=== PATIENT | female | born 1940 | race Caucasian/White ===

== ENCOUNTER 2016-04-26 09:06 | Day surgery (SDC) ==
[2016-04-26 10:07] LABS: HEMATOCRIT 49.8 % (37.0-47.0); HEMOGLOBIN 15.8 g/dL (12.0-16.0); MCH 28.6 PG (27-31); MCHC 31.7 g/dL (33-37); MCV 90.1 FL (81-99); MPV 11.1 FL (7.4-10.4); RBC 5.53 XMIL (4.2-5.4)
[2016-04-26 10:22] LABS: INR 1.05; PROTIME 11.1 Seconds (9.2-11.7); PTT 29.9 Seconds (22.0-36.0)
--- NOTE | 2016-04-26 13:16 | Diag Imaging Result Document ---
PROCEDURE NAME: CHEST-2 VIEWS - 04/26/2016 INSPIRATORY/EXPIRATORY CHEST FOLLOWING CT-GUIDED BIOPSY OF THE RIGHT LOWER LOBE: FINDINGS: There is no evidence of pneumothorax or pleural fluid collection. The appearance of the chest has not changed appreciably since 12/09/2015. IMPRESSION: No evidence of acute disease.
--- NOTE | 2016-04-26 13:28 | Diag Imaging Result Document ---
PROCEDURE NAME: CT GUIDED BIOPSY LUNG - 04/26/2016 CT-GUIDED BIOPSY OF THE RIGHT LOWER LOBE: TECHNIQUE: The nodule in the posterior right lower lobe which was demonstrated on the PET-CT scan of 04/15/[address] of the chest dated 04/09/2016 was biopsied. Prior to the procedure, the benefits and risks of the procedure including the possibility of bleeding, infection, pneumothorax, or reaction to lidocaine were discussed. The patient agreed to the procedure. Following sterile preparation of the skin posteriorly and administration of 1% lidocaine to the skin and deeper soft tissues, a coaxial Unpaktno 20-gauge core biopsy needle was employed to obtain 4 cores from the lesion. There are no immediate complications aside from limited hemoptysis. IMPRESSION: Successful CT-guided percutaneous biopsy of right lower lobe nodule.
[2016-04-26 15:04] VITALS: BP 111/73
--- NOTE | 2016-04-26 19:26 | Diag Imaging Result Document ---
PROCEDURE NAME: CHEST-2 VIEWS - 04/26/2016 TWO-VIEWS OF THE CHEST: FINDINGS: There is no evidence of pneumothorax or pleural fluid collection, and compared to the previous set of images at 11:55 hours, there has been no significant change in the appearance of the chest. IMPRESSION: No evidence of pneumothorax.
== END 2016-04-26 15:25 | disposition home or self-care (01) ==
LOC: ENDO 09:06
PROVIDERS: ATTEND Internal Medicine Pulmonary Disease
DX: J98.4 Other disorders of lung (principal); R22.9 Localized swelling, mass and lump, unspecified; J44.9 Chronic obstructive pulmonary disease, unspecified; E78.5 Hyperlipidemia, unspecified; G47.33 Obstructive sleep apnea (adult) (pediatric); G47.10 Hypersomnia, unspecified; Z87.891 Personal history of nicotine dependence; R06.02 Shortness of breath; R42 Dizziness and giddiness; Z85.3 Personal history of malignant neoplasm of breast; Z79.51 Long term (current) use of inhaled steroids; Z79.82 Long term (current) use of aspirin; Z79.899 Other long term (current) drug therapy
CPT/HCPCS: 32405; 71020; 77012; 85027; 85610; 85730; 88305; 88312

== ENCOUNTER 2018-10-23 20:01 | Inpatient (IN) ==
[2018-10-23] MEDS ORDERED: SOLU-MEDROL IV ONE ×2 (20:35→20:40)
[2018-10-23] MEDS ORDERED: DUONEB (A & A) INH ONE ×2 (20:35→20:36)
[2018-10-23] MEDS ORDERED: LASIX IV ONE ×2 (20:40→23:03)
--- NOTE | 2018-10-23 20:42 | PROVIDER DOCUMENTATION ---
HPI-Respiratory General - General Chief Complaint: Shortness of Breath Stated Complaint: sob Time Seen by Provider: 10/23/18 20:30 Source: patient, EMS Allergies/Adverse Reactions: Patient Allergies Allergy/AdvReac Type Severity Reaction Status Date / Time ampicillin Allergy Unknown Verified 04/23/17 18:39 flaxseed Allergy ITCHING Verified 04/23/17 18:39 meperidine HCl * Allergy migraines Verified 04/23/17 18:39 [From Demerol] oxycodone HCl * Allergy HEADACHE Verified 04/23/17 18:39 [From Percodan] oxycodone terephthalate * Allergy HEADACHE Verified 04/23/17 18:39 [From Percodan] oxytetracycline Allergy Unknown Verified 04/23/17 18:39 [From Terramycin] oxytetracycline HCl * Allergy Unknown Verified 04/23/17 18:39 [From Terramycin] Sulfa (Sulfonamide Allergy ITCHING Verified 04/23/17 18:39 Antibiotics) tetracycline Allergy ITCHING Verified 04/23/17 18:39 Home Medications: Home Medication List Medication Instructions Recorded Confirmed Last Taken Type Levothyroxine [Synthroid] 50 microgm PO DAILY 04/29/14 04/23/17 04/23/17 History Simvastatin 20 mg PO QHS 04/29/14 04/23/17 04/22/17 History Triamterene/Hydrochlorothiazid 1 each PO DAILY 04/29/14 04/23/17 04/23/17 History [Triamterene-Hctz 37.5-25 mg Cp] Aspirin 81 mg PO DAILY #0 chewtab 05/06/14 04/23/17 04/23/17 Rx Diltiazem [Cardizem] 120 mg PO DAILY #30 tablet 05/06/14 04/23/17 04/23/17 Rx Omeprazole 40 mg PO DAILY #60 capsule. 07/31/15 04/23/17 04/23/17 Rx Clonazepam [Klonopin] 0.5 mg PO BID 04/25/16 04/23/17 04/23/17 History Albuterol Sulfate Inhaler 2 puff INH [id number] PRN 04/23/17 04/23/17 04/23/17 History [Ventolin Hfa] Bisacodyl [Dulcolax] 10 mg TN BID supp 05/12/17 Unknown Rx Iron Carbonyl/Ascorbic Acid 1 ea PO BID #60 tab 05/12/17 Unknown Rx [Icar-C] Levofloxacin [Levaquin] 500 mg PO DAILY #4 tab 05/12/17 Unknown Rx Methylprednisolone [Medrol Dosepak] 4 mg PO DIRECTED #1 pkg 05/12/17 Unknown Rx Multivitamins/Minerals [Centrum 1 each PO DAILY tablet 05/12/17 Unknown Rx Silver] Polyethylene Glycol 3350 [Miralax] 34 gm PO BID PRN #1 powder, packet 05/12/17 Unknown Rx Sitagliptin [Januvia] 50 mg PO DAILY #30 tab 05/12/17 Unknown Rx - History of Present Illness-Resp Nature of Presenting Problem: [id number] presents to the ER with c/o SOB. She states that she has had increasing SOB over a period of days. She claims to wear 3L NC at home. However, EMS was called due to the patient's distress. Upon arrival, O2 sat's were 80% on 3L NC. Patient reports a history of COPD, Emphysema, Afib, and HTN. She denies any CHF. Onset/Duration: reports: gradual Episode Frequency: chronic episodes Current Respiratory Medication Therapy: Initiated albuterol/atrovent inhale, Initiated A/A nebulizer Similar Symptoms Previously?: No Recently seen or treated by another doctor?: No Review of Systems - Adult - REVIEW OF SYSTEMS - ADULT Constitutional: reports: see HPI. denies: chills, fever Eyes: reports: no symptoms reported Ears, Nose, Mouth & Throat: reports: no symptoms reported Cardiovascular: reports: see HPI, edema, irregular heart rate Respiratory: reports: see HPI, cough, dyspnea on exertion, shortness of breath, wheezing Gastrointestinal: reports: no symptoms reported. denies: abdominal pain, diarrhea, nausea, vomiting Genitourinary: reports: no symptoms reported Musculoskeletal: reports: no symptoms reported Integumentary: reports: no symptoms reported Neurological: reports: no symptoms reported. denies: dizziness/vertigo, syncope Psychiatric: reports: no symptoms reported Endocrine: reports: no symptoms reported Hematologic/Lymphatic: reports: no symptoms reported Allergic/Immunologic: reports: no symptoms reported All Other Systems: Reviewed and Negative Past History - Adult - PAST MEDICAL HISTORY-ADULT Review of Records: reports: Old Records Reviewed, Nursing Assessment Review, Medications Reviewed, Social history reviewed & non-contributory. Major Childhood Illnesses: reports: denies history Cardiovascular: reports: HTN, hyperlipidemia Respiratory: reports: COPD Gastrointestinal: reports: GERD, ulcer Obstetrical/Gynecological: reports: other (left breast cancer) Genitourinary: reports: denies history Musculoskeletal: reports: denies history Neurological: reports: denies history Psychiatric: reports: anxiety, depression Endocrine/Immune: reports: denies history Other Conditions: reports: denies history - PRIOR SURGERIES/PROCEDURES Surgical/Procedure History: reports: hernia repair, other (mastectomy) - IMMUNIZATION STATUS Childhood Immunizations: See Nurse Assessment Flu Vaccine: See Nurse Assessment - FAMILY HISTORY Family History: reviewed, not pertinent - SOCIAL HISTORY Smoking: denies, quit greater than 1 year Substance Use: denies Living Situation: care facility Physical Exam-General - PHYSICAL EXAM-ADULT Initial Vital Signs Reviewed: Yes - CONSTITUTIONAL General Appearance: alert, moderate distress - EYES Eyes: PERRL/EOMI, pink conjunctivae - HEAD, EARS, NOSE, MOUTH & THROAT HENMT: normocephalic/atraumatic, moist mucous membranes - NECK Neck: non-tender, full range of motion, supple - RESPIRATORY Respiratory: decreased breath sounds, accessory muscle use, wheezing - CARDIOVASCULAR Cardiovascular: normal peripheral pulses, irregularly irregular - GASTROINTESTINAL (ABDOMEN) Abdominal Exam: normal bowel sounds, non tender, distended - MUSCULOSKELETAL Back Exam: normal inspection Extremity: normal range of motion, non-tender, normal gait, pedal edema (+3) Peripheral Pulses: radial (R): 2+, radial (L): 2+, dorsalis-pedis (R): 2+, dorsalis-pedis (L): 2+ - SKIN Integumentary: normal color, normal turgor, warm/dry - NEUROLOGIC Neurologic: grossly normal - PSYCHIATRIC Psych/Mental Status: normal mood/affect, normal thought content, oriented x 3 - HEART Score HEART Score: History: Slightly Suspicious HEART Score: ECG: Non-Specific Repolarization Disturbance/LBBB/PM HEART Score: Age: > or = 65 Years HEART Score: Risk Factors for Atherosclerotic Disease: > or = 3 Risk Factors or History of Atherosclerotic Disease HEART Score: Troponin: < or = Normal Limit Total HEART Score:: 5 Progress - PLAN OF CARE/RESULTS Progress/Plan/Lab Results: Vital Signs - 8 hr 10/23/18 20:11 10/23/18 20:41 Temperature 97.6 F Pulse Rate 103 H 100 H Respiratory Rate 26 H 18 Blood Pressure 159/88 O2 Sat by Pulse Oximetry 96 Laboratory Results - last 24 hr 10/23/18 10/23/18 10/23/18 20:34 20:34 20:34 WBC Cancelled RBC Cancelled Hgb Cancelled Hct Cancelled MCV Cancelled MCH Cancelled MCHC Cancelled RDW Std Deviation Cancelled Plt Count Cancelled MPV Cancelled Immature Gran % (Auto) Cancelled Neut % (Auto) Cancelled Lymph % (Auto) Cancelled Cascade % (Auto) Cancelled Eos % (Auto) Cancelled Baso % (Auto) Cancelled Immature Gran # (Auto) Cancelled Neut # (Auto) Cancelled Lymph # (Auto) Cancelled Cascade # (Auto) Cancelled Eos # (Auto) Cancelled Baso # (Auto) Cancelled Corrected WBC (Man) Cancelled PT INR PTT (Actin FS) Specimen Type Sample Site pH pCO2 pO2 HCO3 Base Excess Oxyhemoglobin ABG O2 Sat (Calculated) ABG O2 Saturation ABG Carboxyhemoglobin ABG Methemoglobin Eliceo Test A-a O2 Difference Total Hemoglobin Lactate Liter Flow Blood Gas Modality FiO2 % Sodium 142 Potassium 4.3 Chloride 100 Carbon Dioxide 28 Anion Gap 14 BUN 25 H Creatinine 0.7 Estimated GFR/1.73 m2 > 60 BUN/Creatinine Ratio 36 Glucose 126 H Calculated Osmolality 289 Calcium 9.2 Total Bilirubin 0.70 AST 26 ALT 19 Alkaline Phosphatase 132 H Creatine Kinase 75 Troponin T < 0.010 [id number] Pept Total Protein 7.9 Albumin 3.4 L Globulin 4.5 Albumin/Globulin Ratio 0.8 Plasma Lactate Urine Source Urine Color Urine Turbidity Urine pH Ur Specific [place] Urine Protein Ur Glucose (Stick) Ur Ketones (Stick) Urine Blood Urine Nitrite Urine Bilirubin Urobilinogen Dipstick Urine Leukocytes Urine WBC (Auto) Urine RBC (Auto) U Epithel Cells (Auto) Urine Bacteria (Auto) 10/23/18 10/23/18 10/23/18 20:34 20:34 20:35 WBC RBC Hgb Hct MCV MCH MCHC RDW Std Deviation Plt Count MPV Immature Gran % (Auto) Neut % (Auto) Lymph % (Auto) Cascade % (Auto) Eos % (Auto) Baso % (Auto) Immature Gran # (Auto) Neut # (Auto) Lymph # (Auto) Cascade # (Auto) Eos # (Auto) Baso # (Auto) Corrected WBC (Man) PT 14.8 INR 1.14 PTT (Actin FS) 33.3 Specimen Type ARTERIAL Sample Site R RADIAL pH 7.43 pCO2 52 H* pO2 74 HCO3 31.3 H Base Excess 8.3 H Oxyhemoglobin 94.0 L ABG O2 Sat (Calculated) 20.0 ABG O2 Saturation 96.9 ABG Carboxyhemoglobin 1.90 ABG Methemoglobin 1.1 Eliceo Test YES A-a O2 Difference 146.0 Total Hemoglobin 15.1 Lactate 0.80 Liter Flow 5.0 Blood Gas Modality CANNULA FiO2 % 40.0 Sodium Potassium Chloride Carbon Dioxide Anion Gap BUN Creatinine Estimated GFR/1.73 m2 BUN/Creatinine Ratio Glucose Calculated Osmolality Calcium Total Bilirubin AST ALT Alkaline Phosphatase Creatine Kinase Troponin T [id number] Pept 1104 H Total Protein Albumin Globulin Albumin/Globulin Ratio Plasma Lactate Urine Source Urine Color Urine Turbidity Urine pH Ur Specific [place] Urine Protein Ur Glucose (Stick) Ur Ketones (Stick) Urine Blood Urine Nitrite Urine Bilirubin Urobilinogen Dipstick Urine Leukocytes Urine WBC (Auto) Urine RBC (Auto) U Epithel Cells (Auto) Urine Bacteria (Auto) 10/23/18 10/23/18 10/23/18 21:15 21:15 21:20 WBC 10.92 H RBC 5.26 Hgb 14.6 Hct 48.3 H MCV 91.8 MCH 27.8 MCHC 30.2 L RDW Std Deviation 15.0 H Plt Count 226 MPV 11.1 H Immature Gran % (Auto) 0.8 H Neut % (Auto) 77.9 H Lymph % (Auto) 9.1 L Cascade % (Auto) 10.9 H Eos % (Auto) 0.9 Baso % (Auto) 0.4 Immature Gran # (Auto) 0.09 H Neut # (Auto) 8.51 H Lymph # (Auto) 0.99 L Cascade # (Auto) 1.19 H Eos # (Auto) 0.10 Baso # (Auto) 0.04 Corrected WBC (Man) PT INR PTT (Actin FS) Specimen Type Sample Site pH pCO2 pO2 HCO3 Base Excess Oxyhemoglobin ABG O2 Sat (Calculated) ABG O2 Saturation ABG Carboxyhemoglobin ABG Methemoglobin Eliceo Test A-a O2 Difference Total Hemoglobin Lactate Liter Flow Blood Gas Modality FiO2 % Sodium Potassium Chloride Carbon Dioxide Anion Gap BUN Creatinine Estimated GFR/1.73 m2 BUN/Creatinine Ratio Glucose Calculated Osmolality Calcium Total Bilirubin AST ALT Alkaline Phosphatase Creatine Kinase Troponin T Bsg-[id number]-Jiliujabjsh Pept Total Protein Albumin Globulin Albumin/Globulin Ratio Plasma Lactate 1.2 Urine Source CLEAN CATCH Urine Color YELLOW Urine Turbidity HAZY Urine pH 6.5 Ur Specific [place] 1.012 Urine Protein 100 A Ur Glucose (Stick) NEGATIVE Ur Ketones (Stick) NEGATIVE Urine Blood NEGATIVE Urine Nitrite NEGATIVE Urine Bilirubin NEGATIVE Urobilinogen Dipstick NORMAL Urine Leukocytes NEGATIVE Urine WBC (Auto) <10 Urine RBC (Auto) <10 U Epithel Cells (Auto) >10 A Urine Bacteria (Auto) 1+ Orders Category Date Time Status Cardiac Monitoring DIRECTED Care 10/23/18 22:02 Active [place] Cath Insertion ORDERED Care 10/23/18 22:19 Active IV Insertion ORDERED Care 10/23/18 22:02 Completed Notify MD of + Sepsis Screen NOW Care 10/23/18 22:02 Active Notify Physician As Ordered Care 10/23/18 22:02 Active [place] Loc NOW Care 10/23/18 20:35 Active CHEST-2 VIEWS [RAD] Stat Exams 10/23/18 20:35 Completed ABG [RESP] Routine Lab 10/23/18 20:35 Completed BLOOD CULTURE [BLDCUL] Stat Lab 10/23/18 21:15 Results BNP [PRO B-NATRIURETIC PEPTIDE] Stat Lab 10/23/18 20:34 Completed CBC WITH DIFF [HEME] Stat Lab 10/23/18 21:15 Completed CK PROFILE [SP CHEM] Stat Lab 10/23/18 20:34 Completed COMPREHENSIVE METABOLIC PANEL [CHEM] Stat Lab 10/23/18 20:34 Completed LACTATE, PLASMA [CHEM] Stat Lab 10/23/18 21:15 Completed PROTIME WITH INR [COAG] Stat Lab 10/23/18 20:34 Completed PTT [COAG] Stat Lab 10/23/18 20:34 Completed TROPONIN T Stat Lab 10/23/18 20:34 Completed URINALYSIS W/POSS RFLX CULT [URINALYSIS] Stat Lab 10/23/18 21:20 Completed Albuterol 2.5MG/Ipratrop 0.5MG [Duoneb (A & A)] Med 10/23/18 20:35 Discontinued 3 ml INH NOW ONE Albuterol 2.5MG/Ipratrop 0.5MG [Duoneb (A & A)] Med 10/23/18 20:36 Discontinued 3 ml INH NOW ONE Furosemide [Lasix] Med 10/23/18 20:40 Discontinued 40 mg IV NOW ONE Methylprednisolone Sod Succ [Solu-Medrol] Med 10/23/18 20:40 Discontinued 125 mg IV NOW ONE Methylprednisolone Sod Succ [Solu-Medrol] Med 10/23/18 20:35 Discontinued 40 mg IV NOW ONE Aerosol Treatments Routine Oth 10/23/18 20:35 Active Aerosol Treatments Routine Oth 10/23/18 20:40 Active Aerosol Treatments Stat Oth 10/23/18 20:35 Active Aerosol Treatments Stat Oth 10/23/18 20:40 Active Oxygen Device Stat Oth 10/23/18 22:02 Active EKG [EKG] Stat Ther 10/23/18 20:35 Draft Result Diagrams: 10/23/18 21:15 10/23/18 20:34 - EKG 1 Rhythm: afib - XRAY 1 XRAY Study: Chest Impression: Abnormal (FINDINGS: The lungs are well expanded. The heart is mildly enlarged. The vessels are mildly distended. There are no infiltrates. Small pleural effusions. There are surgical clips in the left axilla. Apparent scarring in the right apex. There are several old rib fractures. IMPRESSION: Mildly prominent heart with pulmonary edema.), See EMR Report - CONSULTS/PCP/HOSPITALIST Notification #1 *Consult/PCP/Hospitalist*: Dr Paulson Time Discussed: 22:45 Reason/Comments: COPD exacerbation, pulmonary edema Consult Disposition: Admit Departure - Departure Date of Disposition Decision: 10/23/18 Time of Disposition Decision: 22:45 DIAGNOSIS: COPD exacerbation Pulmonary edema Qualifiers: Chronicity: acute Qualified Code(s): J81.0 - Acute pulmonary edema Disposition: ADMITTED INPATIENT 09 Certified Medical Emergency: Emergent Condition: Critical Additional Freetext Instructions: ED Follow Up Instructions: You have been treated by a care provider in the Emergency Department. These instructions are being provided to you so you can have an understanding of how to care for yourself upon discharge. Upon discharge from the Emergency Department, you are responsible for making arrangements for follow-up care by a physician of your choice. Take all prescribed medications as directed. Return to the Emergency Department immediately for any new or worsening symptoms. You may call the Physician Referral phone number at [phone] to obtain a list of Physicians who are taking new patients. Referrals and Follow-Ups: Miriam Gould MD [Primary Care Provider] - - Critical Care Note This patient required my direct & personal management of CC.: No Attestation - Physician/ ESTELA Attestation Patient care was provided by Advanced Practice Provider:: Yes Advanced Practice Provider:: Eduard Vasquez Advanced Practice Provider documentation review:: The Mid-level provider documentation, treatment plan and medical decision making was reviewed by the nathaniel deluca who agrees with all treatment and medical decision making by the MLP. The physician spent face to face time with patient:: No Advanced Practice Provider documentation review:: Supervising physician onsite and consulted in the evaluation and care of this patient. The physician did not have a face to face encounter with the patient.
[2018-10-23 20:54] LABS: ALLEN TEST YES; BE 8.3 mmoll (-3.0-3.0); BLOOD TYPE ARTERIAL; HCO3-(ACT) 31.3 mmoll (20.0-26.0); METHB 1.1 % (0.0-1.5); PO2(98.6) 74 mmHg (60-100); SAMPLE BLOOD; SAO2 96.9 % (95.0-100.0); THB 15.1 g/dL (11.5-17.4); pH(98.6) 7.43 (7.35-7.45)
[2018-10-23 20:55] LABS: MODALITY CANNULA
[2018-10-23 20:57] LABS: PCO2(98.6) 52 mmHg (35-45)
[2018-10-23 21:35] LABS: BASO# 0.04 X1000 (0.0-0.2); BASO% 0.4 % (0.0-0.8); EOS% 0.9 % (0.0-10.0); HEMATOCRIT 48.3 % (37.0-47.0); HEMOGLOBIN 14.6 g/dL (12.0-16.0); IMM GRAN# 0.09 X1000 (0.0-0.04); IMM GRAN% 0.8 % (0.0-0.5); LYMPH# 0.99 X1000 (1.2-3.4); LYMPH% 9.1 % (20.5-51.1); MCH 27.8 PG (27-31); MCHC 30.2 g/dL (33-37); MCV 91.8 FL (81-99); MONO# 1.19 X1000 (0.11-0.59); MONO% 10.9 % (1.7-9.3); MPV 11.1 FL (7.4-10.4); NEUT# 8.51 X1000 (1.4-6.5); NEUT% 77.9 % (42.2-75.2); PLT 226 X1000 (130-400); RBC 5.26 XMIL (4.2-5.4); WBC 10.92 X1000 (4.8-10.8)
--- NOTE | 2018-10-23 21:41 | EKG Report ---
Test Performed on : 10/23/2018 8:20:48 PM Test Reason : sob Blood Pressure : / mmHG Vent. Rate : 095 BPM Atrial Rate : 098 BPM P-R Int : 000 ms QRS Dur : 070 ms QT Int : 352 ms P-R-T Axes : 000 081 055 degrees QTc Int : 442 ms Atrial fibrillation. with a competing junctional pacemaker. with premature ventricular or aberrantly conducted complexes. Nonspecific ST abnormality Abnormal ECG When compared with ECG of 27-JUL-2015 06:54, Atrial fibrillation. has replaced Sinus rhythm. Vent. rate has increased BY 37 BPM Unconfirmed Result
[2018-10-23 21:49] LABS: AGAP 14; ALB/GLOB RATIO 0.8; ALBUMIN 3.4 g/dL (3.5-5.0); ALKALINE PHOSPHATASE 132 U/L (32-104); BUN 25 mg/dL (8-22); CALCIUM 9.2 mg/dL (8.8-10.2); CHLORIDE 100 mmol/L (98-107); CK PROFILE 75 U/L (24-173); COSMO 289; CREATININE 0.7 mg/dL (0.5-0.9); ESTIMATED GFR > 60; GLUCOSE 126 mg/dL (70-104); GOT 26 U/L (10-30); GPT 19 U/L (10-36); POTASSIUM 4.3 mmol/L (3.5-5.1); SODIUM 142 mmol/L (136-145); TCO2 28 mmol/L (25-35); TOTAL PROTEIN 7.9 g/dL (6.3-8.3)
--- NOTE | 2018-10-23 21:59 | Diag Imaging Result Doc PS360 ---
EXAM: CHEST-2 VIEWS HISTORY: SOB TECHNIQUE: Chest two views COMPARISON: 05/12/2017 FINDINGS: The lungs are well expanded. The heart is mildly enlarged. The vessels are mildly distended. There are no infiltrates. Small pleural effusions. There are surgical clips in the left axilla. Apparent scarring in the right apex. There are several old rib fractures. IMPRESSION: Mildly prominent heart with pulmonary edema. Electronically signed by Dedrick Bonilla 10/23/2018 9:57 PM
[2018-10-23 22:17] LABS: URINE SOURCE CLEAN CATCH
[2018-10-23 22:21] LABS: BILIRUBIN URINE NEGATIVE (NEGATIVE); BLOOD URINE NEGATIVE (NEGATIVE); COLOR YELLOW; GLUCOSE URINE NEGATIVE (NEGATIVE); KETONE URINE NEGATIVE (NEGATIVE); LEUKOCYTES URINE NEGATIVE (NEGATIVE); NITRITE URINE NEGATIVE (NEGATIVE); PH URINE 6.5; PROTEIN URINE 100 mg/dL (NEGATIVE); SP GRAVITY URINE 1.012; TURBIDITY URINE HAZY (CLEAR); UR EPITHELIAL CELLS >10 /HPF (<10); URINE BACTERIA 1+ /HPF; URINE RBC <10 /HPF (<10); URINE WBC <10 /HPF (<10); UROBILINOGEN URINE NORMAL (NORMAL)
[2018-10-23 22:32] LABS: INR 1.14; PROTIME 14.8 Seconds (11.0-16.0)
[2018-10-23 22:33] LABS: PTT 33.3 Seconds (22.3-41.8)
[2018-10-23] MEDS ORDERED: LANOXIN IV ONE (23:03)
[2018-10-23] MEDS ORDERED: TYLENOL PO ONE (23:03)
--- NOTE | 2018-10-23 23:21 | HISTORY AND PHYSICAL ---
ADDENDUM Ms Berger is a 78-year-old woman with past medical history of atrial fibrillation, hyperlipidemia, hypertension, COPD, and type 2 diabetes, who comes in complaining of a 4-day history of worsening shortness of breath with orthopnea, cough productive of whitish sputum. No chest pain or palpitations. Was found to have an O2 saturation in the 80s despite being on 2-3 L at home. She has since received some Lasix and feels slightly better. PHYSICAL EXAMINATION: VITAL SIGNS: Blood pressure is 150/90, heart rate 103, respirations 26, temperature is 97.6. Rest of the exam is notable for a regular heart rhythm. First and second heart sounds heard. No murmurs appreciated. Bibasilar crepitations. Decreased entry in the bases and 1+ pedal edema. The patient definitely has findings consistent with congestive heart failure. Last echo had shown a 60% ejection fraction in 2014. She will benefit from another echo. Continue with diuresis with Lasix. Bronchodilation with supportive nebulizations. Pending echo, which if the patient has a depressed LV function, will then be treated with aldosterone, Entresto, and beta blockers at a later date. Her heart rate is slightly rapid, and for now may entertain giving the patient to restore heart rate a 1 time dose of Lasix. Her lab work, however, was only notable for BUN 25, creatinine 0.7. Troponin was negative. Chest film did show bilateral increased vascular markings. Steroids were given but I would prefer, in light of this patient's acute CHF exacerbation, that this be discontinued and only bronchodilators being that steroids can increase salt and water retention. cc: Ligia Paulson MD
[2018-10-24] MEDS: DUONEB (A & A) INH SCH ×4 (03:00→20:04)
[2018-10-24] MEDS ORDERED: ZOFRAN IV PRN (03:11)
[2018-10-24 05:14] LABS: BASO# 0.01 X1000 (0.0-0.2); BASO% 0.1 % (0.0-0.8); EOS# 0.01 X1000 (0.0-0.7); EOS% 0.1 % (0.0-10.0); HEMATOCRIT 49.9 % (37.0-47.0); HEMOGLOBIN 15.1 g/dL (12.0-16.0); IMM GRAN# 0.02 X1000 (0.0-0.04); IMM GRAN% 0.2 % (0.0-0.5); LYMPH# 0.37 X1000 (1.2-3.4); LYMPH% 3.4 % (20.5-51.1); MCH 27.5 PG (27-31); MCHC 30.3 g/dL (33-37); MCV 90.7 FL (81-99); MONO% 0.9 % (1.7-9.3); MPV 11.2 FL (7.4-10.4); NEUT# 10.48 X1000 (1.4-6.5); NEUT% 95.3 % (42.2-75.2); PLT 244 X1000 (130-400); WBC 10.99 X1000 (4.8-10.8)
[2018-10-24 05:21] LABS: AGAP 6; BUN 22 mg/dL (8-22); CALCIUM 8.8 mg/dL (8.8-10.2); CHLORIDE 96 mmol/L (98-107); CK PROFILE 77 U/L (24-173); COSMO 291; CREATININE 0.7 mg/dL (0.5-0.9); ESTIMATED GFR > 60; GLUCOSE 178 mg/dL (70-104); POTASSIUM 3.8 mmol/L (3.5-5.1); SODIUM 142 mmol/L (136-145); TCO2 40 mmol/L (25-35)
[2018-10-24] MEDS: SYNTHROID PO SCH (06:36)
[2018-10-24] MEDS: PRILOSEC PO SCH (06:36)
[2018-10-24] MEDS ORDERED: DYAZIDE PO SCH (09:00)
--- NOTE | 2018-10-24 09:13 | EKG Report ---
Test Performed on : 10/24/2018 06:45:04 AM Test Reason : CHF Blood Pressure : / mmHG Vent. Rate : 105 BPM Atrial Rate : 340 BPM P-R Int : 000 ms QRS Dur : 070 ms QT Int : 304 ms P-R-T Axes : 000 092 074 degrees QTc Int : 401 ms Atrial fibrillation. with rapid ventricular response. Rightward axis Abnormal ECG When compared with ECG of 23-OCT-2018 20:20, (Unconfirmed) No significant change was found Confirmed by Sherif Lara MD ([id number]) on 10/26/2018 8:33:38 AM
--- NOTE | 2018-10-24 09:34 | PROGRESS NOTE ---
DATE: 10/24/2018 SUBJECTIVE: This morning Ms. Berger refers to be doing a lot better. She was sitting up in a chair, was having her breakfast. She said her breathing is getting better and that she is also having some cough which is nonproductive. She is down to 3 L of nasal cannula. OBJECTIVE: Vital signs: Blood pressure is 151/63, pulse of 61, respirations 22, temperature is 98.2 degrees. The patient was saturating about 95%. General exam: Ms. Berger is a 78-year- old elderly female. She was sitting up in a chair trying to eat her breakfast. She was not in any distress. HEENT: Mucosa is pink and moist. Anicteric. Acyanotic. Neck: Supple. Chest: Air entry is bilaterally reduced. There is still some prolonged expiratory phase of respiration. There is also diffuse end-expiratory wheezing and mild crackles posteriorly in both lungs. Cardiovascular: Irregularly irregular, but no murmurs, no rubs, no gallops and rate is controlled. Abdomen: Soft, nontender. Extremities: About 1+ pedal edema. LOFT PATTERNMAKER: Patient is awake, alert, and oriented. There is no focal neurological deficit. LABORATORY DATA: WBC is 10.99, hemoglobin is 15.1, platelet count of 244. Chemistry is also reviewed; is completely within normal range, except for bicarbonate which is slightly elevated. TSH is within normal range. Laboratory data today: Pro-B was 1104, which is actually lower than the previous ones that we have had on her. Patient's I's and O's: Urine output was just 30. IMAGING STUDIES: A chest x-ray on admission showed mild prominent heart with pulmonary edema. n Have all been reviewed. CURRENT MEDICATIONS: She is on IV Lasix for diuretic purposes. ASSESSMENT: 1. Acute on chronic hypoxemic respiratory failure. Patient is back down to 3 liters on nasal cannula. She seems to be saturating well. We are going to continue with this. 2. Pulmonary edema concerning for congestive heart failure exacerbation. Patient is on diuretic therapy. 3. History of chronic obstructive pulmonary disease with bronchospasm concerning for chronic obstructive pulmonary disease exacerbation. We will go ahead and start the patient on antimicrobial and steroids for underlying chronic obstructive pulmonary disease exacerbation. 4. Atrial fibrillation currently rate controlled. Patient is on diltiazem. No anticoagulation because of previous gastrointestinal bleed. 5. Morbid obesity with body mass index of 49.1. 6. Suspected obstructive sleep apnea. 7. Mild hypercarbic failure noted. We are going to keep eye on this. Patient might need BiPAP/CPAP to sleep. PLAN: So, in general, I think Ms. Berger seems to be getting a little better. We are going to continue with the diuretic therapy. Her home medications have all been resumed. We will continue with the bronchodilation therapy. I have added antimicrobial and steroids for possible COPD exacerbation. cc: José Booth MD
[2018-10-24] MEDS: CRESTOR PO SCH (09:39)
[2018-10-24] MEDS: CENTRUM SILVER PO SCH (09:40)
[2018-10-24] MEDS: ASPIRIN PO SCH (09:40)
[2018-10-24] MEDS: ZITHROMAX 500 MG/NS 500 MG/250 ML IVPB IV SCH (09:40)
[2018-10-24] MEDS: CARDIZEM CD PO SCH (09:40)
[2018-10-24] MEDS: PREDNISONE PO SCH (09:42)
[2018-10-24] MEDS: LASIX IV SCH ×2 (09:42→20:26)
--- NOTE | 2018-10-24 11:23 | HISTORY AND PHYSICAL ---
PRIMARY CARE PROVIDER: Miriam Gould MD DATE AND TIME: 10/24/2018 at 0100. CHIEF COMPLAINT: Shortness of breath. HISTORY OF PRESENT ILLNESS: Ms. Berger is a 78-year-old female with reported increased shortness of breath over the past 4 days. She reports that she initially had dyspnea with exertion and some orthopnea though now is having worsening symptoms. She has had a productive cough with white sputum though she denies any fever, body aches, or chills. The patient does have a history of COPD and wears continuous home oxygen on nasal cannula at 3 L. At home she did check her oxygen saturation and despite having her oxygen on at 3 L and even bumping it up to 4 L she did have an oxygen saturation that was in the 80s. Given this as well as her symptoms, she did decide to come to the E.R. for further evaluation. The patient denies any known history of congestive heart failure though she does report that she has had some swelling in her bilateral lower extremities. She denies any dizziness, headache, or lightheadedness. She denies any chest pain. She denies any abdominal pain, nausea, vomiting, or diarrhea. She denies any dysuria or urinary frequency. She denies any hematochezia or melena. Other than the slight swelling in her lower extremities she denies any other pain, numbness, tingling, or swelling in her extremities. The patient reports that she does take Cardizem for rate control of her atrial fibrillation and the only anticoagulant or antiplatelet that she takes is an 81 mg aspirin. She denied any other history of being on anticoagulants. The patient in the past has been admitted for evaluation of a gastrointestinal bleed. I am not sure if this is the reason why she is not on any other anticoagulants. Upon evaluation in the E.R. oxygen saturation upon arrival was 96% on nasal cannula at 4 L though she was slightly tachycardiac. EKG did show that she had atrial fibrillation. Chemistries revealed that she did have an elevated proBNP at 1104 though CK and troponin were negative. A chest x-ray did show findings consistent with pulmonary edema. Since being given a total of 60 mg of Lasix in the E.R. she has had a positive response to this with, at the time of my assessment, a total of 1600 mL of urine output in her [place] drainage bag and the patient reported that the nurse had already previously emptied this once as well. She states that since being given the Lasix that she feels much better and is able to breathe much easier as well. The patient will be admitted for further treatment and evaluation. REVIEW OF SYSTEMS: A 14 point review of systems was conducted with the patient and all were negative except for pertinent positives mentioned above in the HPI. PAST MEDICAL HISTORY: 1. Hypertension. 2. Hyperlipidemia. 3. Gastroesophageal reflux disease. 4. Hypothyroidism. 5. Asthma. 6. COPD. 7. Oxygen dependency on continuous nasal cannula at 3 L at home. 8. History of breast cancer, status post left mastectomy. The patient reports that she did previously take tamoxifen for treatment of this as well. 9. Anxiety. 10.Atrial fibrillation. PAST SURGICAL HISTORY: 1. Umbilical hernia repair. 2. Left mastectomy secondary to left breast cancer. 3. History of several previous D Cs. SOCIAL HISTORY: The patient is a former smoker. She quit smoking in 2004 though prior to this did at one point smoke up to 3 packs per day. She is . Her 19 years ago. Her son was at the bedside. He does help take care of her when she needs assistance. She denies any alcohol or illicit drug use. FAMILY HISTORY: Positive for her father having a history of Parkinson's disease. Her mother had a history of heart failure secondary to rheumatic fever when she was younger. ALLERGIES: The patient reports allergies to ampicillin, flax seed, Demerol, oxycodone, sulfa, tetracycline, Percodan, Terramycin, and Asendin. HOME MEDICATIONS: 1. Ventolin HFA inhaler, two puffs inhaled 4 times a day as needed. 2. Aspirin 81 mg p.o. daily. 3. Klonopin 0.5 mg p.o. b.i.d. 4. Cardizem 120 mg controlled dose p.o. daily. 5. Levothyroxine 50 mcg daily. 6. Centrum Silver multivitamin 1 p.o. daily. 7. Omeprazole 40 mg p.o. daily. 8. Crestor 5 mg p.o. daily. 9. Stiolto Respimat inhaled spray, 2.5 mcg inhaled b.i.d. 10.Maxzide 37.5 mg/25 mg capsule 1 p.o. daily. DIAGNOSTIC DATA: White blood cell count is 10,920, hemoglobin 14.6, hematocrit 48.3, and platelet count 226. PT is 14.8, INR 1.14, and PTT 33.3. Sodium is 142, potassium 4.3, chloride 100, serum bicarb 28, BUN 25, creatinine 0.7. glucose 126, calcium 9.2, and magnesium 1.9. Liver function tests within normal limits. Alkaline phosphatase is slightly elevated at 132. CK is 75. Troponin is less than 0.01. ProBNP is 1,104. Arterial blood gases were obtained on nasal cannula at an FiO2 of 40% and pH was 7.43, pCO2 52, pO2 74, and HCO3 is 31.3 with a base excess 8.3 and O2 saturation of 96.9%. Urinalysis was obtained via clean catch and was positive for protein and 1+ bacteria though was negative for glucose, ketones, blood, nitrites, leukocytes, or white blood cells. EKG showed atrial fibrillation at a rate of 95 with a QTc of 442. Chest x-ray did show a mildly prominent heart with pulmonary edema. PHYSICAL EXAMINATION: VITAL SIGNS: Temperature 97.6, heart rate 103, respirations 20, and blood pressure 153/94. Oxygen saturation is 96% on nasal cannula at 3 L. GENERAL: Ms. Berger is a pleasant 78-year-old female. She was resting in the E.R. stretcher. She was in no acute distress. She was awake, alert, and able to answer questions appropriately. HEENT: The head is atraumatic, normocephalic. Pupils are equal, round, and reactive to light. They were 3 mm bilaterally and brisk. Oral mucosa was moist. Oropharynx was clear. NECK: Supple. Trachea is midline. The patient did have possibly some slight JVD noted. CARDIOVASCULAR: The patient has S1 and S2 present. No murmurs, gallops, or rubs appreciated with a regular rate and rhythm. PULMONARY: The patient has symmetrical chest expansion bilaterally. Lungs sounds in bilateral upper reaves were clear to auscultation though she did have some crackles noted in the bilateral bases. ABDOMEN: Soft, nontender, and nondistended but the patient does have a protuberant abdomen noted. Bowel sounds were present in all four quadrants and were normoactive. EXTREMITIES: No cyanosis noted. The patient does have some edema noted in bilateral lower extremities. This was 1+ edema from just inferior to the knee down bilaterally. Pulse, motor, and sensory was intact in all extremities. Radial and pedal pulses were 2+ bilaterally. INTEGUMENTARY: The patient's skin is pink, warm, and dry. NEUROLOGICAL: The patient is alert and oriented to person, place, time and situation. She is able to move all extremities. There are no focal neurological deficits noted. ASSESSMENT AND PLAN: 1. Congestive heart failure exacerbation. The patient has received a total of 60 mg of Lasix IV in the E.R. and initially she has had a positive response to this with greater than 1600 mL of urine output since that time. She states that she feels much better. We will continue with Lasix 40 mg IV every 12 hours. We will continue her earlier prescribed Cardiac medications of Cardizem and her 81 mg aspirin p.o. as well as her Maxzide. She will receive a 1 time dose of Digoxin in the E.R. given that her heart rate is slightly elevated. We will continue with a series of cardiac enzymes and repeat EKG in the morning and an echocardiogram. She will be on a heart healthy diet. We will do strict intake and outputs. She will be on contiguous telemetry with frequent vital signs. We have placed a consult with Cardiology and we will await their evaluation and further recommendations for management. 2. Chronic obstructive pulmonary disease. On home oxygen via nasal cannula at 4 L. We will continue the patient's oxygen therapy. Since receiving Lasix and DuoNeb treatment her respiratory status has improved. Her oxygen saturation at this time is 95% to 96%. We will continue with scheduled DuoNeb treatments. She did receive a dose of Solu- Medrol in the E.R. though given her acute congestive heart failure exacerbation we will try to hold off any further steroids at this time given that this could increase her salt and water retention. 3. Hypertension. We will continue her earlier prescribed medication of Maxzide. 4. Hyperlipidemia. We will continue her Crestor. 5. Hypothyroidism. We will continue her levothyroxine. We have ordered a TSH. 6. Chronic atrial fibrillation. We will continue her Cardizem. The patient did receive a 1 time dose of digoxin in the E.R. and since this time her heart rate has been controlled. 7. Deep vein thrombosis prophylaxis will be provided with sequential compression devices. The patient has been placed on the medical floor with telemetry. She will have vital signs every 4 hours. We will do strict intake and output and incentive spirometry. We will repeat a CBC and CMP in the morning as well as a series of cardiac enzymes. Further orders and recommendations pending the hospital course, diagnostic studies, and physician evaluation. Dictated by PINKY Acosta for Ligia Paulson MD cc: Ligia Paulson MD MTDD
--- NOTE | 2018-10-24 14:28 | CARDIOLOGY CONSULTATION ---
DATE: 10/24/2018 HISTORY OF PRESENT ILLNESS: Cardiology was consulted. Patient has chronic atrial fibrillation, COPD, emphysema, morbid obesity, history of GI bleed in the past. Comes in with complaints of having had productive cough with mucoid expectoration. She wears oxygen at home 3 L nasal cannula. She noticed that she has had increasing shortness of breath. Denies chest pain. She became orthopneic, came to the emergency room, was admitted. Her CK and troponin initially were negative. She was given Lasix 40 mg in the emergency room. ProBNP elevated at 1 04 and electrocardiogram revealed atrial fibrillation. In the past, she has had GI bleed secondary to diverticulosis. She is not anticoagulated on that account, has undergone upper GI endoscopy and colonoscopy. She has chronic shortness of breath. REVIEW OF SYSTEM: General: A 14-point review of systems was done. Gastrointestinal system: There is no history of nausea, vomiting. There is no history of hematemesis or melena. Central nervous system: No focal weakness to suggest a CVA or TIA. Genitourinary system: There is no dysuria or hematuria. PAST MEDICAL HISTORY: 1. Hypertension hyperlipidemia, has gastroesophageal reflux disease, diverticulosis, history of hypothyroidism. 2. Asthma, COPD, emphysema. 3. History of breast cancer status post left mastectomy. 4. Chronic atrial fibrillation. 5. Anxiety disorder. 6. Left mastectomy in the past. 7. Umbilical hernia repair. 8. She had diverticulosis and underwent colonoscopy 04/25/2017. Has diverticulosis. No active evidence of bleeding. HOME MEDICATIONS: 1. Inhalers. 2. Crestor 5. 3. Multivitamins. 4. Albuterol inhaler. 5. Clonazepam. 6. Omeprazole 20. 7. Diltiazem 120. 8. Enteric-coated aspirin. 9. Levothyroxine . 10. Triamterene/hydrochlorothiazide. 11. Zithromax intravenous. 12. Prednisone. PHYSICAL EXAMINATION: Vital Signs: Blood pressure 158/85, heart rate 90 and irregular. Neck: Jugular venous pressure could not be assessed. Heart: First and second heart sounds were heard. There was no S3 gallop. Respiratory system: Prolonged expiratory wheeze bilateral. Mild crackles noted inferiorly. Abdomen: Soft, nontender. Extremities: Examination of extremities revealed mild pedal edema. Central nervous system: Alert and oriented. He was moving all 4 extremities. LABORATORY EXAMINATION: Revealed cardiac enzymes were negative. Sodium 142, potassium 3.8, BUN 22, creatinine 0.7. Alkaline phosphatase 132, ALT and AST were normal. Bilirubin was normal. Glucose 126. Hematology: WBC 10.99, hemoglobin 15.1, hematocrit 49, platelet count of 244. X-RAY DATA: Chest x-ray: Cardiomegaly with mild pulmonary edema. ASSESSMENT AND PLAN: 1. Ms. Jossie Berger is a 78-year-old lady with morbid obesity, chronic atrial fibrillation, chronic obstructive pulmonary disease, emphysema, hypertension, gastroesophageal reflux disease, breast cancer status post left mastectomy is admitted with increasing shortness of breath and became orthopneic. She is noted to be in heart failure. From a cardiac standpoint, we will get an echocardiogram to assess cardiac and valvular function. She is on Lasix 40 mg twice daily. She would benefit from the same. At home, she takes triamterene/hydrochlorothiazide. We will discontinue the same. Put her on Lasix 40 mg oral twice daily at time of discharge. 2. Atrial fibrillation. She is on Cardizem and aspirin. As far as anticoagulation therapy is concerned, she is at a high risk for developing a stroke. She has had colonoscopy. There were no obvious bleeding issues. Diverticulosis was noted. Her hemoglobin/hematocrit is stable. The colonoscopy was performed on gastrointestinal workup last year. Would recommend treating with Eliquis 5 mg twice daily. 3. Hyperlipidemia. Continue with Crestor. 4. Hypothyroid. Continue with levothyroxine. 5. She likely has diastolic heart failure. However, we will reassess cardiac function with echocardiogram today. She has significant obesity as well. Would recommend outpatient workup for sleep apnea. Thank you for the consult. We will follow hospital course. cc: Nino Calixto MD
[2018-10-24] MEDS: TYLENOL PO PRN (20:26)
[2018-10-24] MEDS: KLONOPIN PO PRN (20:26)
[2018-10-25] MEDS: DUONEB (A & A) INH SCH ×4 (03:31→22:03)
[2018-10-25] MEDS: TYLENOL PO PRN ×2 (04:18→23:16)
[2018-10-25] MEDS: SYNTHROID PO SCH (07:04)
[2018-10-25] MEDS: PRILOSEC PO SCH (07:04)
[2018-10-25] MEDS: ZITHROMAX 500 MG/NS 500 MG/250 ML IVPB IV SCH (09:27)
[2018-10-25] MEDS: PREDNISONE PO SCH (09:28)
[2018-10-25] MEDS: CRESTOR PO SCH (09:28)
[2018-10-25] MEDS: KLONOPIN PO PRN ×2 (09:28→22:17)
[2018-10-25] MEDS: LASIX IV SCH (09:28)
[2018-10-25] MEDS: ASPIRIN PO SCH (09:29)
[2018-10-25] MEDS: CENTRUM SILVER PO SCH (09:29)
[2018-10-25] MEDS: CARDIZEM CD PO SCH (09:29)
--- NOTE | 2018-10-25 15:24 | PROGRESS NOTE ---
DATE: 10/25/2018 SUBJECTIVE: This morning, Ms. Berger refers to be doing okay. Still had some shortness of breath and wheezing. OBJECTIVE: Vital Signs: Blood pressure 131/94, pulse of 109, respirations are 18, temperature is 97.4 degrees. Patient was saturating about 92% on nasal cannula. General Examination: Ms. Berger is a 78-year-old, elderly, female. She is in bed. HEENT: Mucosa is pink and moist. Anicteric. Acyanotic. Neck: Supple. Chest: Air entry is bilaterally reduced. There is still a prolonged expiratory phase of respiration. There is diffuse end expiratory wheezing in both lung reaves. No crackles. Cardiovascular: Irregularly irregular but rate controlled. No murmurs, no rubs, no gallops. GI: Abdomen is soft. Extremities: There is just trace of pedal edema. PIPE FITTER FIRE SPRINKLER SYSTEMS: The patient is awake, alert, and follows commands. Laboratory Data: None for today. No imaging studies either. The patient's current medications have all been reviewed. We have changed her Lasix to just one- time dosing. ASSESSMENT: 1. Acute on chronic hypoxemic respiratory failure secondary to congestive heart failure exacerbation and chronic obstructive pulmonary disease. 2. Pulmonary edema secondary to congestive heart failure. The patient is on diuretic therapy. The edema has significantly improved so we will dose the Lasix only once per day. 3. Chronic obstructive pulmonary disease with bronchospasm, concerning for exacerbation. The patient is currently coughing up some denise-yellowish expectoration so we are going to culture this. She is currently on steroids and antimicrobial therapy, as well as bronchodilation therapy. 4. Atrial fibrillation, currently rate controlled. The patient has been started on Eliquis by cardiology for stroke prophylaxis. 5. Morbid obesity with a body mass index of 41.1. 6. Suspected obstructive sleep apnea. The patient has been advised to undergo sleep studies upon discharge. PLAN: In general, Ms. Berger is doing fairly stable. Still remains with bronchospastic symptoms. We are going to continue with the bronchodilation therapy, steroids, and antimicrobial, as well as diuretics. We will order sputum to be cultured and incentive spirometer. cc: José Booth MD
--- NOTE | 2018-10-25 16:41 | ECHO REPORT ---
ORDER DATE: 10/24/2018 INTERPRETING PHYSICIAN: Dr. Nino Calixto ECHOCARDIOGRAPHIC MEASUREMENTS: 1. Interventricular septum: 1.0 cm. 2. Left ventricular posterior wall: 1.1 cm. 3. Diastolic diameter: 4.6 cm. 4. Left atrium: 3.6 cm. 5. Aortic root: 2.7 cm. SUMMARY OF THE 2-DIMENSIONAL IMAGIN. Aortic valve leaflets are sclerosed, trileaflet opening normally. 2. Pulmonic valve was normal. 3. Tricuspid valve was normal. 4. Atrial fibrillation noted. 5. There is trace pulmonary regurgitation. 6. Mitral valve was normal. There is mitral annular calcification. There is mild tricuspid regurgitation. Peak velocity across the tricuspid valve was 2.8 m/sec. 7. Pulmonary artery systolic pressure of 42 mmHg. 8. Peak velocity across the aortic valve less than 2 m/sec. There is no aortic stenosis or regurgitation. There is mild mitral regurgitation. 9. Normal left ventricular cavity size. 10. Mild left ventricular hypertrophy. Estimated ejection fraction of 60% to 65%. 11. There is no pericardial effusion or obvious intracardiac mass or thrombus seen. cc: Nino Calixto MD
[2018-10-26] MEDS: DUONEB (A & A) INH SCH ×4 (03:21→21:40)
[2018-10-26] MEDS: PRILOSEC PO SCH (06:04)
[2018-10-26] MEDS: SYNTHROID PO SCH (06:04)
[2018-10-26 06:32] LABS: HEMATOCRIT 49.8 % (37.0-47.0); MCHC 30.1 g/dL (33-37); MCV 92.9 FL (81-99); MPV 10.8 FL (7.4-10.4); RBC 5.36 XMIL (4.2-5.4); RDW 15.4 % (11.5-14.5); WBC 12.08 X1000 (4.8-10.8)
--- NOTE | 2018-10-26 06:35 | Diag Imaging Result Doc PS360 ---
EXAM: CHEST-PORTABLE HISTORY: dyspnea TECHNIQUE: Chest single view COMPARISON: 10/23/2018 FINDINGS: The lungs are well expanded. Cardiac megaly remains with pulmonary edema. There is basilar atelectasis and small pleural effusions. There are surgical clips in the left axilla. IMPRESSION: No interval improvement Electronically signed by Dedrick Bonilla 10/26/2018 6:33 AM
[2018-10-26 06:49] LABS: AGAP 14; ALBUMIN 3.5 g/dL (3.5-5.0); BUN 39 mg/dL (8-22); CALCIUM 8.9 mg/dL (8.8-10.2); CHLORIDE 92 mmol/L (98-107); COSMO 292; CREATININE 0.9 mg/dL (0.5-0.9); ESTIMATED GFR > 60; GLUCOSE 126 mg/dL (70-104); MAGNESIUM 2.2 mg/dL (1.5-2.7); POTASSIUM 3.5 mmol/L (3.5-5.1); SODIUM 141 mmol/L (136-145); TCO2 35 mmol/L (25-35)
[2018-10-26] MEDS: PREDNISONE PO SCH (09:12)
[2018-10-26] MEDS: LASIX IV SCH (09:12)
[2018-10-26] MEDS: ZITHROMAX 500 MG/NS 500 MG/250 ML IVPB IV SCH (09:12)
[2018-10-26] MEDS: ASPIRIN PO SCH (09:13)
[2018-10-26] MEDS: CRESTOR PO SCH (09:13)
[2018-10-26] MEDS: CENTRUM SILVER PO SCH (09:13)
[2018-10-26] MEDS: KLONOPIN PO PRN ×2 (09:13→22:54)
[2018-10-26] MEDS: CARDIZEM CD PO SCH (09:14)
--- NOTE | 2018-10-26 14:39 | PROGRESS NOTE ---
DATE: 10/26/2018 SUBJECTIVE: Today, Ms. Berger was sitting up in the chair. She referred to be doing a little better. However, she says she has been coughing nonstop. She is bringing out some denise yellowish expectoration. She showed me some in the container that will be sent for testing. OBJECTIVE: Vital Signs: Blood pressure is 124/86, pulse of 103, respirations 19, temperature 98.2 degrees. The patient is saturating 97% on room air. General: Ms. Berger is a 78-year- old elderly female. She was sitting up in the chair in no distress. BMI is about 49.1. HEENT: Mucosa is pink and moist. Anicteric. Acyanotic. Neck: Neck is supple. Chest: Air entry is bilaterally reduced. There is still prolonged expiratory phase of respiration with diffuse expiratory wheezing. No crackles. Cardiovascular: Irregularly irregular but rate controlled. No murmurs, no rubs, no gallops. Abdomen: Soft, distended but nontender. Bowel sounds present. Extremities: No pedal edema. 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 LABORATORY DATA: WBC is 12.08, rest of CBC is unremarkable. Chemistry is also unremarkable. ProBNP is down to 600 from 1104. DIAGNOSTIC STUDIES: A chest x-ray this morning shows no interval improvement. MEDICATIONS: Have all been reviewed. No changes. She is still on anti microbials, steroids, and IV diuretic therapy. ASSESSMENT: 1. Acute on chronic hypoxemic respiratory failure. The patient is currently back to her normal oxygen supplementation. 2. Pulmonary edema on admission secondary to congestive heart failure. This has significantly improved with diuretic therapy. 3. Chronic obstructive pulmonary disease exacerbation, improved. The patient continues to have some baseline wheezing. There is a sputum culture that we are still pending the results. 4. Atrial fibrillation, currently rate controlled. 5. Morbid obesity with BMI of 49.1. 6. Suspected obstructive sleep apnea. Patient advised to follow up with Pulmonary Medicine/sleep team for outpatient evaluation. PLAN: In general, I think Ms. Berger is doing fairly okay. Congestive symptoms have significantly improved. She is still slightly bronchospastic. We are going to continue with the nebulization, steroids, and antimicrobial therapy. Re-evaluate her in the morning. If she is doing much better, I think we can get her discharged. cc: José Booth MD
[2018-10-26] MEDS: TYLENOL PO PRN (22:54)
[2018-10-27] MEDS: DUONEB (A & A) INH SCH ×4 (03:41→21:19)
[2018-10-27] MEDS: SYNTHROID PO SCH (06:38)
[2018-10-27] MEDS: PRILOSEC PO SCH (06:38)
[2018-10-27] MEDS: ZITHROMAX 500 MG/NS 500 MG/250 ML IVPB IV SCH (08:51)
[2018-10-27] MEDS: ASPIRIN PO SCH (08:52)
[2018-10-27] MEDS: LASIX IV SCH (08:52)
[2018-10-27] MEDS: CENTRUM SILVER PO SCH (08:53)
[2018-10-27] MEDS: CRESTOR PO SCH (08:54)
[2018-10-27] MEDS: CARDIZEM CD PO SCH (08:54)
[2018-10-27] MEDS: PREDNISONE PO SCH (08:54)
--- NOTE | 2018-10-27 14:24 | PROGRESS NOTE ---
DATE: 10/27/2018 INTERVAL HISTORY: The patient's oxygenation roughly stable on home 3 L, but still with some fairly significant wheezing and dyspnea with minimal exertion beyond what she has at baseline. No fever or chills. No other new complaints. No acute events overnight. REVIEW OF SYSTEMS: Twelve point review of systems negative, except as per interval history. LABS: WBC 12.0, hemoglobin 15.0, hematocrit 49.8, platelets 273. Sodium 141, potassium 3.5, bicarbonate 35. BUN 39, creatinine 0.9, glucose 126. BNP 611. IMAGING: Chest x-ray yesterday showing continued pulmonary edema. PHYSICAL EXAMINATION: Vitals: T-max 99.7 degrees, pulse 100, respirations 18, blood pressure 125/69, O2 saturations 96% on 3 L by nasal cannula. General: On physical examination, no acute distress. Obese. HEENT: Normocephalic, atraumatic. Moist mucous membranes. Neck: No cervical adenopathy. Cardiovascular: Irregular rhythm, minimally tachycardic. No murmurs noted. Pulmonary: Still with mildly decreased air entry and moderate expiratory wheezing throughout. Abdomen: Soft, nontender, nondistended. Bowel sounds positive. Extremities: Peripheral pulses intact. Trace to 1+ bilateral lower extremity edema. Neurologic: Cranial nerves grossly intact. Mild global weakness, but no focal deficits. Psychiatric: Normal mood and affect. Awake, alert and oriented x3. Skin: No new rashes or lesions identified. ASSESSMENT AND PLAN: 1. Acute on chronic hypoxemic respiratory failure. Oxygenation approaching baseline. The patient is still with pretty pronounced dyspnea on exertion as below. 2. Acute on chronic diastolic congestive heart failure, pulmonary hypertension. The patient's group B natriuretic peptide improving. Pretty significant diuresis with intravenous Lasix, but the patient still with dyspnea on minimal exertion, nonproductive cough. Continue intravenous diuretics one more day. Treat chronic obstructive pulmonary disease as below. 3. Chronic obstructive pulmonary disease with exacerbation. Reportedly improved from admission, but still some pretty significant wheezing, decreased air entry today. The patient is still somewhat symptomatic. Will increase steroids slightly. Continue nebulizers and monitor. 4. Atrial fibrillation remains rate controlled. 5. Morbid obesity, stable. Patient has been counseled on diet and exercise. 6. Likely sleep apnea and possible pickwickian syndrome. Patient advised to follow up for sleep study as an outpatient. dispo: patient with pretty significant dyspnea on exertion and some global weakness. if this doesn't improve, then will likely have to consider rehab placement as she is in independent living with little support. MELO
[2018-10-27] MEDS: SOLU-MEDROL IV SCH (22:02)
[2018-10-27] MEDS: KLONOPIN PO PRN (22:04)
[2018-10-27] MEDS: TYLENOL PO PRN (22:23)
[2018-10-28] MEDS: DUONEB (A & A) INH SCH ×4 (03:38→21:36)
[2018-10-28] MEDS: SYNTHROID PO SCH (06:04)
[2018-10-28] MEDS: PRILOSEC PO SCH (06:04)
[2018-10-28] MEDS: CARDIZEM CD PO SCH (10:26)
[2018-10-28] MEDS: CRESTOR PO SCH (10:26)
[2018-10-28] MEDS: CENTRUM SILVER PO SCH (10:28)
[2018-10-28] MEDS: SOLU-MEDROL IV SCH ×2 (10:28→21:08)
[2018-10-28] MEDS: ASPIRIN PO SCH (10:29)
[2018-10-28] MEDS: LASIX IV SCH (10:29)
[2018-10-28] MEDS: ZITHROMAX 500 MG/NS 500 MG/250 ML IVPB IV SCH (11:12)
[2018-10-28 11:49] LABS: BASO# 0.01 X1000 (0.0-0.2); BASO% 0.1 % (0.0-0.8); EOS# 0.01 X1000 (0.0-0.7); EOS% 0.1 % (0.0-10.0); HEMOGLOBIN 15.9 g/dL (12.0-16.0); IMM GRAN# 0.07 X1000 (0.0-0.04); IMM GRAN% 0.4 % (0.0-0.5); LYMPH# 0.48 X1000 (1.2-3.4); LYMPH% 3.1 % (20.5-51.1); MCH 27.4 PG (27-31); MCV 91.4 FL (81-99); MONO# 0.63 X1000 (0.11-0.59); MPV 10.9 FL (7.4-10.4); NEUT# 14.53 X1000 (1.4-6.5); NEUT% 92.3 % (42.2-75.2); PLT 291 X1000 (130-400); RDW 15.1 % (11.5-14.5); WBC 15.73 X1000 (4.8-10.8)
[2018-10-28 11:56] LABS: EOS 2 % (1-10); LYMPHS 4 % (21-51); SEGS 94 % (42-75)
[2018-10-28 12:11] LABS: AGAP 14; BUN 31 mg/dL (8-22); CALCIUM 9.5 mg/dL (8.8-10.2); CHLORIDE 93 mmol/L (98-107); COSMO 294; CREATININE 0.7 mg/dL (0.5-0.9); ESTIMATED GFR > 60; GLUCOSE 207 mg/dL (70-104); SODIUM 141 mmol/L (136-145); TCO2 34 mmol/L (25-35)
[2018-10-28] MEDS: NORVASC PO SCH (17:13)
--- NOTE | 2018-10-28 18:04 | PROGRESS NOTE ---
DATE: 10/28/2018 INTERVAL HISTORY: Patient with somewhat improved dyspnea on exertion. Oxygenation relatively stable on home 3 L. However, had Physical Therapy assess her on ambulation. She did desaturate down into the 80s, and while her dyspnea on exertion was somewhat improved, she still had significant dyspnea after a relatively short period of ambulation. No new complaints. No acute events overnight. REVIEW OF SYSTEMS: Twelve point review of systems negative except as per interval history. LABORATORY DATA: WBC 15.7, hemoglobin 15.9, hematocrit 53.0, platelets 291,000. Basic metabolic panel unremarkable aside from glucose 207. Fluid balance -10 L over the course of the hospitalization. VITALS: T-max 98.0 degrees, pulse 87, respirations 16, blood pressure 158/133. O2 saturation 96% on 3 L by nasal cannula at rest, down to 87 or 88 with ambulation on 3 L. PHYSICAL EXAMINATION: General: No acute distress. Chronically ill appearing. Vitals: As above. HEENT: Normocephalic, atraumatic. Moist mucous membranes. No cervical adenopathy. Cardiovascular: Irregular rhythm no but normal rate. No murmurs noted. Pulmonary: Still with mildly decreased air entry but wheezing improved. Only slight end-expiratory wheeze at this point. Abdomen: Soft, nontender, nondistended. Bowel sounds positive. Extremities: Peripheral pulses intact. Trace to 1+ bilateral lower extremity edema essentially unchanged. Neurologic: Cranial nerves grossly intact. Mild global weakness but no focal deficits. Psychiatric: Normal mood and affect. Awake, alert, oriented x3. Skin: No new rashes or lesions identified. ASSESSMENT AND PLAN: 1. Acute on chronic hypoxemic respiratory failure. Oxygenation near baseline, although did have decreased O2 saturations to into the 80s with ambulation as above. Dyspnea on exertion still present but somewhat improved from yesterday. 2. Acute on chronic diastolic congestive heart failure, pulmonary hypertension. Patient's BNP improving. Dyspnea on exertion improving. Oxygenation at rest pretty much at baseline. Still desaturating with exertion. Continue IV diuretics 1 more day but can likely transition to p.o. Lasix tomorrow if she continues to improve. 3. Chronic obstructive pulmonary disease with exacerbation. Still had some pretty significant wheezing yesterday but definitely improved today. Will continue steroids where they are. Continue DuoNeb and monitor. 4. Atrial fibrillation. Remains rate controlled. 5. Morbid obesity. Stable. Patient has been counseled on diet and exercise. 6. Likely sleep apnea and possible pickwickian syndrome. Patient advised to follow up for sleep study as an outpatient. 7. Disposition. The patient's dyspnea on exertion is improving but still with limited ability to ambulate and hypoxia with ambulation. Given ongoing weakness, we will plan on pursuing rehab placement for at least a short period until she is able to ambulate independently long enough to be safe at home. MELO
[2018-10-28] MEDS: KLONOPIN PO PRN (21:06)
[2018-10-28] MEDS: TYLENOL PO PRN (21:06)
[2018-10-29] MEDS: DUONEB (A & A) INH SCH ×4 (03:26→23:01)
[2018-10-29] MEDS: PRILOSEC PO SCH (06:24)
[2018-10-29] MEDS: SYNTHROID PO SCH (06:24)
[2018-10-29] MEDS: TYLENOL PO PRN ×2 (08:37→19:21)
[2018-10-29] MEDS: ASPIRIN PO SCH (08:38)
[2018-10-29] MEDS: LASIX IV SCH (08:38)
[2018-10-29] MEDS: CRESTOR PO SCH (08:38)
[2018-10-29] MEDS: CARDIZEM CD PO SCH (08:38)
[2018-10-29] MEDS: SOLU-MEDROL IV SCH ×2 (08:38→20:24)
[2018-10-29] MEDS: CENTRUM SILVER PO SCH (08:39)
[2018-10-29] MEDS: ZITHROMAX 500 MG/NS 500 MG/250 ML IVPB IV SCH (08:39)
[2018-10-29] MEDS: NORVASC PO SCH (08:39)
--- NOTE | 2018-10-29 16:24 | PROGRESS NOTE ---
DATE: 10/29/2018 INTERVAL HISTORY: Patient with continued slow improvement. Oxygen at rest remained stable on home 3 L. Worked further with physical therapy today. O2 had to be increased of 4 to 5 L and still dipped down into the 80s briefly but desaturations and exercise tolerance did appear to be improved from previous. No acute events overnight. No new complaints. Received a message at one point that the patient was refusing rehab, but on clarification, she was reluctant to go and discussed with patient that her options are really to go home with home health today versus wait for rehab placement. She was amenable to waiting for rehab placement as she did not feel she would be able to get into, out of around her apartment at home. REVIEW OF SYSTEMS: Twelve point review of systems negative except as per interval history. LABS: CBC 15.7, hemoglobin 15.9, hematocrit 53.0, platelets 291,000. Basic metabolic panel unremarkable. VITALS: T-max 98.5 degrees, pulse 87, respirations 16, blood pressure 141/65, O2 saturation 98% on 3 L by nasal cannula. PHYSICAL EXAMINATION: General: No acute distress. Chronically ill appearing. Vitals: As above. HEENT: Normocephalic, atraumatic. Moist mucous membranes. No cervical adenopathy. Cardiovascular: Irregular rhythm but normal rate. No murmurs noted. Pulmonary: Mildly decreased air entry throughout, stable. Fairly minimal expiratory wheezing at this point, although still present. Abdomen: Soft nontender nondistended. Obese. Bowel sounds positive. Extremities: Peripheral pulses intact. Trace to 1+ bilateral lower extremity edema, stable. Neurologic: Cranial nerves grossly intact. Still with some mild global weakness but no focal deficits. Psychiatric: Normal mood and affect. Awake, alert, oriented x3. Skin: No new rashes or lesions identified. ASSESSMENT/PLAN: 1. Acute on chronic hypoxemic respiratory failure. Still some desaturations with ambulation with physical therapy but resting oxygenation near baseline. O2 requirements with exercise improving. 2. Acute on chronic diastolic congestive heart failure, pulmonary hypertension. Dyspnea improving as above. We will go ahead and transition to p.o. antibiotics and p.o. diuretics and monitor. 3. Chronic obstructive pulmonary disease with exacerbation. Wheezing significantly improved. We will wean steroids down to daily and anticipate transitioning to p.o. steroid taper on discharge. 4. Atrial fibrillation remains rate controlled. 5. Morbid obesity stable. Patient has been counseled on diet and exercise. 6. Likely sick sleep apnea and possible Pickwickian syndrome. The patient advised to follow up for sleep study as an outpatient. DISPOSITION: 1. Patient still with dyspnea on exertion. Able to ambulate fairly well with a walker, requires numerous stops. PT recommending short stay rehab. The patient also uncertain she can walk a distance required to get into and out of her apartment currently. The patient initially reluctant, but now seems amenable to rehab placement. 2. Anticipate discharge once rehab bed is obtained.
[2018-10-29] MEDS: KLONOPIN PO PRN (22:06)
[2018-10-30] MEDS: DUONEB (A & A) INH SCH ×4 (03:42→21:22)
[2018-10-30] MEDS: SYNTHROID PO SCH (06:15)
[2018-10-30] MEDS: PRILOSEC PO SCH (06:15)
[2018-10-30] MEDS: CENTRUM SILVER PO SCH (09:33)
[2018-10-30] MEDS: ASPIRIN PO SCH (09:33)
[2018-10-30] MEDS: NORVASC PO SCH (09:33)
[2018-10-30] MEDS: KLONOPIN PO PRN ×2 (09:33→22:19)
[2018-10-30] MEDS: CRESTOR PO SCH (09:34)
[2018-10-30] MEDS: SOLU-MEDROL IV SCH ×2 (09:35→21:12)
[2018-10-30] MEDS: LASIX PO SCH (09:35)
[2018-10-30] MEDS: CARDIZEM CD PO SCH (09:35)
[2018-10-30] MEDS: TYLENOL PO PRN ×2 (09:35→22:19)
--- NOTE | 2018-10-30 16:46 | PROGRESS NOTE ---
DATE: 10/30/2018 INTERVAL HISTORY: The patient's respiratory status is largely stable. Oxygen requirements remain stable and possibly slightly improved from her home 3 L. Continued dyspnea on exertion. Essentially stable with some modest improvement. No acute events overnight. No new complaints. REVIEW OF SYSTEMS: Twelve point review of systems negative except as per interval history. VITAL SIGNS: T-max 98 degrees, pulse 88, respirations 16, blood pressure 123/66, O2 saturation 95% on 100% on 3 L by nasal cannula. PHYSICAL EXAMINATION: General: No acute distress. Chronically ill appearing. Vitals: As above. HEENT: Normocephalic, atraumatic. Moist mucous membranes. No cervical adenopathy. Cardiovascular: Irregular rhythm but normal rate. No murmurs noted. Pulmonary: Unchanged. Mildly decreased air entry throughout. Really no wheezing today. Abdomen: Soft, nontender, nondistended. Obese. Bowel sounds positive. Extremities: Peripheral pulses intact. Trace to 1+ bilateral lower extremity edema unchanged. Neurologic: Cranial nerves grossly intact. Mild global weakness but no focal deficits. Psychiatric: Normal mood and affect. Awake, alert, oriented x3. Skin: No new rashes or lesions seen. ASSESSMENT AND PLAN: 1. Acute on chronic hypoxemic respiratory failure. The patient on 3 L oxygen at home. O2 requirements have to improve. Actually a little better than what she is theoretically at home at this point. Still poor exercise tolerance, dyspnea on exertion, but may be more deconditioning than pulmonary at this point. 2. Acute on chronic diastolic congestive heart failure, pulmonary hypertension. Dyspnea much improved as above. Transitioned to p.o. diuretics. We will continue weaning steroids. Plan on transition to p.o. taper on discharge. 3. Chronic obstructive pulmonary disease with exacerbation. Wheezing essentially resolved at this point. Weaning steroids as above. 4. Atrial fibrillation remains rate controlled. 5. Morbid obesity stable. Patient has been counseled on diet and exercise. 6. Likely sleep apnea and possible pickwickian syndrome. Patient advised to follow up for sleep study as an outpatient. DISPOSITION: Patient improving but slowly. Rehab placement in process. Anticipate discharge once that is obtained. [facility]
[2018-10-31] MEDS: DUONEB (A & A) INH SCH ×4 (03:37→21:43)
[2018-10-31] MEDS: PRILOSEC PO SCH (06:20)
[2018-10-31 07:23] LABS: BASO# 0.01 X1000 (0.0-0.2); BASO% 0.1 % (0.0-0.8); EOS# 0.06 X1000 (0.0-0.7); EOS% 0.3 % (0.0-10.0); HEMATOCRIT 53.5 % (37.0-47.0); HEMOGLOBIN 16.1 g/dL (12.0-16.0); IMM GRAN# 0.16 X1000 (0.0-0.04); IMM GRAN% 0.9 % (0.0-0.5); LYMPH# 0.37 X1000 (1.2-3.4); LYMPH% 2.1 % (20.5-51.1); MCH 27.2 PG (27-31); MCHC 30.1 g/dL (33-37); MCV 90.4 FL (81-99); MONO# 0.78 X1000 (0.11-0.59); MONO% 4.5 % (1.7-9.3); NEUT# 16.14 X1000 (1.4-6.5); NEUT% 92.1 % (42.2-75.2); PLT 303 X1000 (130-400); RBC 5.92 XMIL (4.2-5.4); RDW 15.1 % (11.5-14.5); WBC 17.52 X1000 (4.8-10.8)
[2018-10-31 07:38] LABS: AGAP 14; BUN 43 mg/dL (8-22); CALCIUM 8.7 mg/dL (8.8-10.2); CHLORIDE 92 mmol/L (98-107); COSMO 294; CREATININE 0.8 mg/dL (0.5-0.9); ESTIMATED GFR > 60; GLUCOSE 207 mg/dL (70-104); POTASSIUM 4.4 mmol/L (3.5-5.1); SODIUM 139 mmol/L (136-145); TCO2 33 mmol/L (25-35)
[2018-10-31 07:51] LABS: BANDS 3 % (0-1); LYMPHS 2 % (21-51); MONO 2 % (1-9); SEGS 93 % (42-75)
[2018-10-31] MEDS: NORVASC PO SCH (10:11)
[2018-10-31] MEDS: TYLENOL PO PRN (10:11)
[2018-10-31] MEDS: CRESTOR PO SCH (10:11)
[2018-10-31] MEDS: ASPIRIN PO SCH (10:11)
[2018-10-31] MEDS: KLONOPIN PO PRN ×2 (10:11→22:06)
[2018-10-31] MEDS: CENTRUM SILVER PO SCH (10:11)
[2018-10-31] MEDS: CARDIZEM CD PO SCH (10:12)
[2018-10-31] MEDS: SYNTHROID PO SCH (10:12)
[2018-10-31] MEDS: SOLU-MEDROL IV SCH (10:12)
[2018-10-31] MEDS: LASIX PO SCH (10:12)
--- NOTE | 2018-10-31 14:07 | Diag Imaging Result Doc PS360 ---
EXAM: CHEST-PORTABLE INDICATION: dyspnea TECHNIQUE: One view COMPARISON: 10/26/2018 FINDINGS: There is pulmonary venous congestion and mild interstitial edema that has improved slightly during the interval. No new consolidation is identified. Cardiac silhouette is stable. IMPRESSION: Improvement of pulmonary venous congestion and mild interstitial edema. Electronically signed by Nicolas Mackenzie 10/31/2018 2:04 PM
--- NOTE | 2018-10-31 15:51 | PROGRESS NOTE ---
DATE: 10/31/2018 INTERVAL HISTORY: Patient's dyspnea on exertion proximally stable. Ability to ambulate continue to improve slowly. Continues to have good oxygen saturations on her home 3 L of oxygen. Has even been off of oxygen entirely for brief periods while at rest. Denies fever, chills, increased cough, dysuria, diarrhea. REVIEW OF SYSTEMS: Twelve point review of systems negative except as per interval history. LABS: WBC 17.5, hemoglobin 16.1, hematocrit 53.5, platelets 303,000, sodium 139, potassium 4.4, BUN 43, creatinine 0.8, glucose 207. IMAGING: Chest x-ray with an improvement in pulmonary venous congestion and edema. VITALS: T-max 98, pulse 87, respiration 21, blood pressure 132/90, O2 saturation 92% on 3 L by nasal cannula. PHYSICAL EXAM: General: No acute distress, chronically ill appearing, vitals as above. HEENT: Normocephalic, atraumatic. Moist mucous membranes. No cervical adenopathy. Cardiovascular: Irregular rhythm but normal rate. No murmurs noted. Pulmonary: Mildly decreased air entry throughout stable. No wheezing currently. Abdomen: Soft, nontender, nondistended, obese, bowel sounds positive. Extremities: Peripheral pulses intact, trace lower extremity edema stable. Neurologic: Cranial nerves grossly intact, mild global weakness unchanged. No focal deficits. Psychiatric: Normal mood and affect, awake, alert, oriented x3. Skin: No new rashes or lesions seen. ASSESSMENT AND PLAN: 1. Acute on chronic hypoxic respiratory failure. Patient on 3 L oxygen at home. O2 requirements have improved and actually some waxing, waning but is slightly better than what she has been at home. Still with some mild global weakness and poor exercise tolerance and dyspnea on exertion. Likely some aspect of deconditioning. 2. Acute on chronic diastolic congestive heart failure, pulmonary hypertension. Dyspnea much improved as above. Patient transitioned to p.o. Lasix once a day. Weaning steroids. Continue to monitor. 3. Chronic obstructive pulmonary disease with exacerbation. Wheezing resolved at this point, continue nebulizers as needed and wean steroids. 4. Atrial fibrillation, patient remains rate controlled. 5. Morbid obesity stable, patient counseled diet and exercise. 6. Likely sleep apnea and possible pickwickian syndrome. Patient has been advised to follow for sleep study as outpatient. 7. Disposition. Patient improved slowly, rehab placement in process. Anticipate discharge once that is obtained hopefully Friday.
[2018-10-31] MEDS: HUMALOG SUBQ SCH ×2 (17:08→20:13)
[2018-11-01] MEDS: TYLENOL PO PRN ×4 (00:32→19:42)
[2018-11-01] MEDS: DUONEB (A & A) INH SCH ×4 (03:56→22:33)
[2018-11-01] MEDS: SYNTHROID PO SCH (06:03)
[2018-11-01] MEDS: PRILOSEC PO SCH (06:03)
[2018-11-01] MEDS: HUMALOG SUBQ SCH ×4 (06:17→20:45)
[2018-11-01 06:52] LABS: HEMOGLOBIN A1C 6.6 % (4.8-6.0)
[2018-11-01 07:17] LABS: AGAP 12; BUN 47 mg/dL (8-22); CALCIUM 8.9 mg/dL (8.8-10.2); CHLORIDE 96 mmol/L (98-107); COSMO 297; CREATININE 0.6 mg/dL (0.5-0.9); ESTIMATED GFR > 60; GLUCOSE 160 mg/dL (70-104); SODIUM 141 mmol/L (136-145); TCO2 33 mmol/L (25-35)
[2018-11-01 07:52] LABS: BASO# 0.04 X1000 (0.0-0.2); BASO% 0.2 % (0.0-0.8); EOS# 0.06 X1000 (0.0-0.7); EOS% 0.3 % (0.0-10.0); HEMATOCRIT 51.7 % (37.0-47.0); HEMOGLOBIN 16.2 g/dL (12.0-16.0); IMM GRAN# 0.25 X1000 (0.0-0.04); IMM GRAN% 1.4 % (0.0-0.5); MCHC 31.3 g/dL (33-37); MCV 89.3 FL (81-99); MONO# 1.52 X1000 (0.11-0.59); MONO% 8.4 % (1.7-9.3); MPV 11.3 FL (7.4-10.4); NEUT# 15.39 X1000 (1.4-6.5); NEUT% 84.7 % (42.2-75.2); PLT 242 X1000 (130-400); RBC 5.79 XMIL (4.2-5.4); RDW 15.2 % (11.5-14.5); WBC 18.16 X1000 (4.8-10.8)
[2018-11-01] MEDS: ASPIRIN PO SCH (09:45)
[2018-11-01] MEDS: LASIX PO SCH (09:45)
[2018-11-01] MEDS: NORVASC PO SCH (09:45)
[2018-11-01] MEDS: KLONOPIN PO PRN ×2 (09:45→22:06)
[2018-11-01] MEDS: PREDNISONE PO SCH (09:46)
[2018-11-01] MEDS: CRESTOR PO SCH (09:46)
[2018-11-01] MEDS: CENTRUM SILVER PO SCH (09:46)
[2018-11-01] MEDS: CARDIZEM CD PO SCH (09:46)
[2018-11-02] MEDS: DUONEB (A & A) INH SCH ×4 (03:34→21:15)
[2018-11-02] MEDS: PRILOSEC PO SCH (06:35)
[2018-11-02] MEDS: SYNTHROID PO SCH (06:35)
[2018-11-02] MEDS: HUMALOG SUBQ SCH ×4 (06:36→22:44)
[2018-11-02 07:10] LABS: BASO# 0.03 X1000 (0.0-0.2); BASO% 0.2 % (0.0-0.8); EOS% 0.6 % (0.0-10.0); HEMATOCRIT 51.4 % (37.0-47.0); HEMOGLOBIN 15.6 g/dL (12.0-16.0); IMM GRAN# 0.28 X1000 (0.0-0.04); IMM GRAN% 1.8 % (0.0-0.5); LYMPH# 0.89 X1000 (1.2-3.4); LYMPH% 5.6 % (20.5-51.1); MCH 27.4 PG (27-31); MCHC 30.4 g/dL (33-37); MCV 90.2 FL (81-99); MONO# 1.17 X1000 (0.11-0.59); MONO% 7.3 % (1.7-9.3); MPV 11.1 FL (7.4-10.4); NEUT# 13.45 X1000 (1.4-6.5); NEUT% 84.5 % (42.2-75.2); PLT 257 X1000 (130-400); RDW 15.2 % (11.5-14.5); WBC 15.92 X1000 (4.8-10.8)
[2018-11-02 07:43] LABS: AGAP 12; BUN 39 mg/dL (8-22); CALCIUM 8.5 mg/dL (8.8-10.2); CHLORIDE 97 mmol/L (98-107); COSMO 294; CREATININE 0.7 mg/dL (0.5-0.9); ESTIMATED GFR > 60; GLUCOSE 132 mg/dL (70-104); POTASSIUM 3.9 mmol/L (3.5-5.1); SODIUM 142 mmol/L (136-145); TCO2 33 mmol/L (25-35)
[2018-11-02] MEDS: CENTRUM SILVER PO SCH (09:41)
[2018-11-02] MEDS: LASIX PO SCH (09:41)
[2018-11-02] MEDS: NORVASC PO SCH (09:41)
[2018-11-02] MEDS: CRESTOR PO SCH (09:41)
[2018-11-02] MEDS: KLONOPIN PO PRN ×2 (09:41→22:43)
[2018-11-02] MEDS: TYLENOL PO PRN ×2 (09:41→22:43)
[2018-11-02] MEDS: CARDIZEM CD PO SCH (09:41)
[2018-11-02] MEDS: ASPIRIN PO SCH (09:42)
[2018-11-02] MEDS: PREDNISONE PO SCH (09:42)
--- NOTE | 2018-11-02 10:56 | PROGRESS NOTE ---
DATE: 11/02/2018 SUBJECTIVE: Ms. Berger is sitting up and seems to be breathing comfortably at this time. She feels like she needs to be a little stronger, and she is hoping to go to rehab. OBJECTIVE: Vital Signs: Her temp is 97.6 degrees, pulse 114, respirations 20, blood pressure 178/80. HEENT: Pupils are equal, round. Lungs: Clear in all lung reaves. Cardiovascular: Regular rhythm and rate without murmur or S3. Abdomen: Soft. Skin: Warm and dry. ASSESSMENT AND PLAN: 1. Acute on chronic hypoxic respiratory failure. Patient on 3 liters of oxygen at home. Oxygen requirements are slightly improved, and it looks like she should be ready to be discharged soon. Looking for rehab. 2. Acute on chronic diastolic congestive heart failure is improved with diuresis. They are weaning steroids. 3. Chronic obstructive pulmonary disease exacerbation. Wheezing is resolved. Bronchospasm improved. 4. Atrial fibrillation. Rate is controlled. 5. Morbid obesity. Encouraged her to continue to pursue weight reduction. 6. Likely sleep apnea by history, possibly some Pickwickian syndrome. She may benefit from some sleep studies as an outpatient. 7. Disposition. She hopes to go to rehab and eventually get back to [facility]. REVIEW OF ORDERS: I do not see any change. REVIEW OF LAB: I do not see any change. cc: Eliceo Mast MD
[2018-11-03] MEDS: DUONEB (A & A) INH SCH ×4 (03:40→21:47)
[2018-11-03] MEDS: HUMALOG SUBQ SCH ×4 (06:34→21:59)
[2018-11-03] MEDS: PRILOSEC PO SCH (06:35)
[2018-11-03] MEDS: SYNTHROID PO SCH (06:35)
[2018-11-03] MEDS: LASIX PO SCH (08:40)
[2018-11-03] MEDS: CENTRUM SILVER PO SCH (08:40)
[2018-11-03] MEDS: PREDNISONE PO SCH (08:40)
[2018-11-03] MEDS: CARDIZEM CD PO SCH (08:40)
[2018-11-03] MEDS: ASPIRIN PO SCH (08:40)
[2018-11-03] MEDS: CRESTOR PO SCH (08:40)
[2018-11-03] MEDS: KLONOPIN PO PRN ×2 (08:40→21:59)
[2018-11-03] MEDS: NORVASC PO SCH (08:41)
--- NOTE | 2018-11-03 12:42 | PROGRESS NOTE ---
DATE: 11/03/2018 SUBJECTIVE: Patient reports feeling fine. She is sitting in the chair. No complaints at this time. OBJECTIVE: Vital Signs: Temperature 97.4 degrees, heart rate 85, respiratory 19, blood pressure 144/73, O2 saturation 100% on 3 L nasal cannula. General: This is a chronically ill-appearing 78- year-old female, lying in bed, in no acute distress. Cardiovascular: S1, S2 heard. No murmurs, gallops, or rubs. Regular rate and rhythm. Respiratory: Clear bilaterally to auscultation. No work of breathing or using accessory muscles. Abdomen: Soft, a little bit distended but nontender to palpation. Bowel sounds present. No organomegaly. Extremities: No clubbing, cyanosis, or edema. Peripheral pulses present in both legs. Neurological: Patient alert and oriented x3. Moves 4 extremities. LABORATORY DATA: Reviewed. ASSESSMENT AND PLAN: 1. Acute on chronic hypoxemic respiratory failure. Patient is stable, now requiring 3 L of oxygen by nasal cannula. We will continue with the same management. 2. Acute on chronic diastolic congestive heart failure. Patient is on Lasix 40 mg p.o. daily. The patient looks fine. We will continue to monitor. 3. Chronic obstructive pulmonary disease exacerbation. Wheezing is completely resolved. We are we are providing prednisone 40 mg that we are supposed to taper off. 4. Atrial fibrillation. Rate controlled. We will continue to monitor. 5. Possible obstructive sleep apnea. Patient recommended to have sleep studies as an outpatient. 6. Disposition. At this point, we are looking for a rehab bed. Basically, we are waiting for approval from her insurance company. cc: Tony Carlson MD
[2018-11-03] MEDS: TYLENOL PO PRN (21:59)
[2018-11-04] MEDS: DUONEB (A & A) INH SCH ×4 (03:17→22:18)
[2018-11-04] MEDS: SYNTHROID PO SCH (06:32)
[2018-11-04] MEDS: PRILOSEC PO SCH (06:32)
[2018-11-04] MEDS: HUMALOG SUBQ SCH ×4 (06:49→22:07)
[2018-11-04] MEDS: LASIX PO SCH (08:33)
[2018-11-04] MEDS: ASPIRIN PO SCH (08:33)
[2018-11-04] MEDS: PREDNISONE PO SCH (08:33)
[2018-11-04] MEDS: CENTRUM SILVER PO SCH (08:34)
[2018-11-04] MEDS: NORVASC PO SCH (08:34)
[2018-11-04] MEDS: CRESTOR PO SCH (08:34)
[2018-11-04] MEDS: CARDIZEM CD PO SCH (08:34)
--- NOTE | 2018-11-04 13:25 | PROGRESS NOTE ---
DATE: 11/04/2018 SUBJECTIVE: Patient reports feeling fine. Denies any fever or chills. OBJECTIVE: Vital Signs: Temperature 98 degrees, heart rate 95, respiratory rate 22, blood pressure 135/78, and O2 saturation 96% on 3 L nasal cannula. General: This is a chronically ill- appearing 78-year-old female lying in bed in no acute distress. Cardiovascular: S1, S2 heard. No murmurs, gallops, or rubs. Regular rate and rhythm. Respiratory: Clear bilaterally to auscultation. No work of breathing or using accessory muscles. Abdomen: Soft. Nontender to palpation. Bowel sounds present. No organomegaly. Extremities: No clubbing, cyanosis or edema. Peripheral pulses present in both legs. Neurologic: The patient is alert and oriented times 3. Moving all four extremities ASSESSMENT AND PLAN: 1. Acute on chronic hypoxemic respiratory failure. Patient is stable requiring 2 L of oxygen by nasal cannula. Not complaining of any shortness of breath. We will continue with same management. 2. Acute on chronic diastolic congestive heart failure. The patient is stable for that condition. The patient is on Lasix 40 mg p.o. daily. We will continue with same management. 3. Chronic obstructive pulmonary disease exacerbation. Wheezing is completely resolved. We will continue with prednisone, and breathing treatment as needed. 4. Atrial fibrillation. Rate controlled. We will continue to monitor. 5. Possible obstructive sleep apnea. The patient recommended to have sleep studies as an outpatient. 6. Disposition. At this point, we are waiting for a rehab bed for this patient. cc: Tony Carlson MD
[2018-11-04] MEDS: TYLENOL PO PRN (22:07)
[2018-11-04] MEDS: KLONOPIN PO PRN (22:07)
[2018-11-05] MEDS: DUONEB (A & A) INH SCH ×3 (04:45→15:57)
[2018-11-05] MEDS: HUMALOG SUBQ SCH ×3 (06:41→17:07)
[2018-11-05] MEDS: SYNTHROID PO SCH (06:41)
[2018-11-05] MEDS: PRILOSEC PO SCH (06:41)
[2018-11-05] MEDS: PREDNISONE PO SCH (10:01)
[2018-11-05] MEDS: ASPIRIN PO SCH (10:01)
[2018-11-05] MEDS: CRESTOR PO SCH (10:02)
[2018-11-05] MEDS: LASIX PO SCH (10:02)
[2018-11-05] MEDS: CENTRUM SILVER PO SCH (10:02)
[2018-11-05] MEDS: NORVASC PO SCH (10:02)
[2018-11-05] MEDS: CARDIZEM CD PO SCH (10:02)
[2018-11-05] MEDS: KLONOPIN PO PRN (10:07)
--- NOTE | 2018-11-05 12:59 | DISCHARGE SUMMARY ---
ADMISSION DATE: 10/24/2018 DISCHARGE DATE: 11/05/2018 DISCHARGE DIAGNOSES: 1. Acute diastolic congestive heart failure exacerbation overlying chronic diastolic heart failure. 2. Chronic obstructive pulmonary disease exacerbation, resolved. 3. Acute on chronic hypoxemic respiratory failure with the patient with stable requiring 2 L of oxygen by nasal cannula. 4. Atrial fibrillation, rate controlled. 5. Morbid obesity. 6. Hypertension. 7. Hyperlipidemia. 8. Hypothyroidism. CONSULT: Nino Calixto MD, Cardiology. DIAGNOSTICS: 1. Chest x-ray revealed mildly prominent heart with pulmonary edema. 2. Echocardiogram revealed mild left ventricular hypertrophy with an ejection fraction of 60% to 65% with no pericardial effusion or obvious intracardiac mass or thrombus seen. MICROBIOLOGY: Blood cultures x2 revealed no growth after 5 days. HOSPITAL COURSE: Ms. Berger presented to the emergency room complaining of shortness of breath. She was found to be in COPD as well as diastolic heart failure exacerbations, for which she was diuresed for a cumulative negative balance of 9 L. This has resolved. She was initially placed on Lasix IV. She has now been transitioned back to Lasix 40 mg orally for COPD exacerbation. She was given steroids to taper as well as breathing treatments, which she tolerated well. She does have chronic atrial fibrillation. Rate has been controlled throughout the hospitalization. TSH was 2.43. We did continue her home dose of Synthroid. Hemoglobin A1c was 6.6. Thankfully, she is stronger, doing well, and is ready to be discharged to rehabilitation. DISCHARGE VITAL SIGNS: Blood pressure is 109/65, blood pressure is 109/65 with heart rate of 99, respirations 18, temperature 97.3 degrees oral with O2 saturations 96% to 98% on 3 L nasal cannula. DISCHARGE PHYSICAL EXAMINATION: Cardiovascular: Irregularly irregular rate and rhythm. S1 and S2 appreciated. Extremities: She has no lower extremity edema. Calves are nontender bilateral with peripheral pulses palpable x4 extremities. Pulmonary: Breath sounds are clear with no increased work of breathing noted. Gastrointestinal: Large, soft, nontender, nondistended. Bowel sounds in all 4 quadrants. Neurologic: She is alert and oriented x3. DISCHARGE MEDICATIONS: 1. Stiolto Respimat inhalation 2.5 mcg b.i.d. 2. Medrol Dosepak as directed. 3. Lasix 40 mg p.o. daily. 4. Klonopin 0.5 p.o. b.i.d. 5. Norvasc 10 mg p.o. daily. 6. Ventolin inhaler 4 times a day. 7. Crestor 5 mg p.o. daily. 8. Omeprazole 40 mg p.o. daily. 9. Centrum Silver 1 p.o. daily. 10. Levothyroxine 50 mcg p.o. daily. 11. Cardizem 120 mg p.o. daily. 12. Aspirin 81 mg p.o. daily. DISPOSITION: She is being discharged in stable condition to rehabilitation with family members present. COORDINATION TIME: This is a greater than 30-minute discharge. Dictated by PINKY Huynh for Tony Carlson MD Addendum: Patient seen and examined by myself. Agree with PINKY note. It reflects my assessment and plan. Patient is being discharged in stable condition to rehab facility. Will be seen by PCP in a week after discharge from rehab. cc: PINKY Huynh MD Hiteshri S. Bhavsar, MD [facility]ENTERImelda
[2018-11-05 16:28] VITALS: BP 134/72
== END 2018-11-05 18:45 | DRG 291 ==
LOC: SUPCPDRO → ED 20:01 → SUATTDRO 10-24 01:28 → 3N 10-24 01:28
PROVIDERS: ATTEND Internal Medicine